=== PATIENT | female | born 1970 | race Caucasian/White ===

== ENCOUNTER 2017-05-30 23:12 | Emergency (ER) | payer SELFPAY, OTHER | END 2017-05-31 02:30 | disposition left against medical advice (07) | LOC: FTE 23:12 | DX: Z53.21 Procedure and treatment not carried out due to patient leaving prior to being seen by health care provider (principal) | CPT/HCPCS: 93005 ==

== ENCOUNTER 2018-01-17 19:21 | Emergency (ER) | payer MEDICAID, OTHER ==
[2018-01-17] MEDS: HYDROCODONE/APAP (5/325) TAB PO (22:07)
[2018-01-17] MEDS: METHOCARBAMOL 750 MG TAB PO (22:08)
[2018-01-17] MEDS: KETOROLAC 60 MG INJ IM (22:12)
== END 2018-01-17 22:19 | disposition home or self-care (01) ==
LOC: FTE 19:21
DX: M54.9 Dorsalgia, unspecified (principal); M79.605 Pain in left leg; M79.604 Pain in right leg; E11.9 Type 2 diabetes mellitus without complications
CPT/HCPCS: 81025; 96372; 99284-25